=== PATIENT | male | born 1995 | race Caucasian/White ===

== ENCOUNTER → 2017-09-14 | Outpatient (CLI) | payer BC | LOC: BMCIMAGING 15:32 | PROVIDERS: ATTEND Family Medicine | DX: M25.511 Pain in right shoulder (principal); M79.661 Pain in right lower leg ==

== ENCOUNTER → 2018-09-20 | Outpatient (CLI) | payer BC | LOC: BMCIMAGING 14:57 | PROVIDERS: ATTEND Internal Medicine | DX: N50.819 Testicular pain, unspecified (principal) ==